=== PATIENT | female | born 1990 | race Hispanic/Latino ===

== ENCOUNTER 2021-11-01 16:26 | Emergency (ER) | payer OTHER, MEDICAID ==
[2021-11-01 17:08] LABS: #Basophils 0.2 10x3/uL (0.0-0.2); #Eosinphils 0.9 10x3/uL (0.0-0.5); #Monocytes 1.2 10x3/uL (0.0-1.1); #Neutrophils 6.2 10x3/uL (1.5-8.4); %Basophils 1.2 % (0.0-2.0); %Eosinophils 7.6 % (0.0-6.0); %Lymphocytes 30.5 % (18.0-47.0); %Monocytes 9.9 % (0.0-10.0); %Neutrophils 50.5 % (40.0-75.0); Hemoglobin 14.2 g/dL (12.0-15.5); Mean Corpuscular HGB CONC 32.9 g/dL (32.0-36.0); Mean Platelet Volume 9.7 fl (7.4-10.4); Platelet Count 326 10x3/uL (150-450); Red Blood Cell (RBC) Count 5.08 10x6/uL (3.90-5.03); White Blood Cell (WBC) Count 12.2 10x3/uL (3.5-10.5)
[2021-11-01] MEDS ORDERED: Aspirin Chewable 81 MG TAB ONE (17:10)
[2021-11-01] MEDS ORDERED: Ondansetron ODT 4 MG TAB ONE (17:11)
[2021-11-01] MEDS ORDERED: Acetaminophen 500 MG TAB ONE (17:11)
[2021-11-01 17:20] LABS: ALT (SGPT) 24 U/L (8-55); AST (SGOT) 21 U/L (5-34); Albumin 4.2 g/dL (3.5-5.0); Alkaline Phosphatase 62 U/L (40-110); Anion Gap 11 mmol/L (10-20); BUN (Urea Nitrogen) 17 mg/dL (7.0-18.7); Bilirubin, Total 0.3 mg/dL (0.2-1.2); Calc. Creatinine Clearance 0 mL/min (70-130); Calcium 9.3 mg/dL (7.8-10.44); Carbon Dioxide 27 mmol/L (22-29); Chloride 103 mmol/L (98-107); Globulin 3.3 g/dL (2.4-3.5); Glucose 79 mg/dL (70-105); Potassium 4.2 mmol/L (3.5-5.1); Protein, Total 7.5 g/dL (6.0-8.3); Sodium 137 mmol/L (136-145)
[2021-11-01] MEDS ORDERED: Ketorolac Tromethamine 30 MG/ML VIAL IVP SCH (19:30)
[2021-11-01 19:42] LABS: Troponin I Less than 0.010 ng/mL (< 0.028)
[2021-11-01] MEDS ORDERED: diphenhydrAMINE 50 MG/ML VIAL ONE (19:45)
== END 2021-11-01 20:20 | disposition home or self-care (01) ==
LOC: CSHERS 16:26
DX: R07.89 Other chest pain (principal); I25.2 Old myocardial infarction
CPT/HCPCS: 36415; 71045; 80053; 84484; 85025; 93005; 96374; 96375; J1200; J1885; Q0162